=== PATIENT | female | born 1995 | race Caucasian/White ===

== ENCOUNTER 2016-11-10 16:22 | Emergency (ER) | payer OTHER ==
[~2016-11-10] VITALS: Ht 165.1 cm; Wt 62.0 kg
[~2016-11-10 16:22] MED LIST: SULFAMETHOXAZOLE; TRIMETHOPRIM
[2016-11-10 16:26] VITALS: Ht 165.1 cm; Wt 62.0 kg
[2016-11-10] MEDS ORDERED: LORAZEPAM 1 MG TAB PO ONE (17:00)
--- NOTE | 2016-11-10 17:21 | RADRPT ---
PROCEDURE: CT Brain without contrast. CLINICAL INDICATION: Trauma TECHNIQUE: A CT of the brain was performed on a multidetector CT scanner utilizing axial imaging f rom the skull base through the vertex without IV contrast. Multiplanar reformatted images were made . Images were reviewed on a PACS workstation. The CTDIvol is 45 mGy and the DLP is 720 mGycm. Individualized dosed optimization technique was used for the performance of this exam. This included 1. Automated exposure control. 2. Adjustment of the mA and / or kV according to the patient's size. 3. The use of iterative reconstruction technique. COMPARISON: None FINDINGS: There is no intracranial hemorrhage, mass effect, or midline shift. No extra-axial fluid collection is seen. The ventricles and sulci are normal in size and configuration. The density of the brain is normal, and the vizcarra white matter differentiation appears well-preserved. The visualized paranasal sinuses and osseous structures are grossly unremarkable. IMPRESSION: 1. No evidence of acute intracranial pathology. 2. The brain is normal in appearance. .Kory Mcguire MD, Date Time Electronically viewed and signed by .Kory Mcguire MD, on 11/10/2016 17:21 .A/
[2016-11-10] MEDS ORDERED: ACET-141 PO (17:26)
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
== END 2016-11-10 17:59 | disposition home or self-care (01) ==
LOC: FTE 16:22
DX: R51 Headache (principal); V49.40XA Driver injured in collision with unspecified motor vehicles in traffic accident, initial encounter
CPT/HCPCS: 70450